=== PATIENT | female | born 1990 | race Caucasian/White ===

== ENCOUNTER 2020-02-20 16:03 | Outpatient (CLI) | payer OTHER, MEDICAID, SELFPAY ==
[2020-02-20 17:12] LABS: Beta HCG Quantitative < 2.39 mIU/ML
== END 2020-02-20 16:04 | disposition home or self-care (01) ==
PROVIDERS: PCP Family Medicine; Visit Provider Student in an Organized Health Care Education/Training Program
DX: Z30.49 Encounter for surveillance of other contraceptives (principal)
CPT/HCPCS: 36415; 84702

== ENCOUNTER 2024-02-01 09:48 | Emergency (ER) | payer BC, SELFPAY ==
--- NOTE | ~2024-02-01 | CT_ITS ---
EXAMINATION: CT lumbar spine wo con DATE: 02/01/2024 10:36 INDICATION: Low back pain. Injury. TECHNIQUE: Computed tomography (CT) of the lumbar spine was performed without intravenous contrast. A utomated exposure control and iterative reconstruction technique were employed. The dose-length produ ct was 1207.26 mGy-cm. COMPARISON: None FINDINGS: There is 13 degrees levoscoliosis of lumbar spine. Vertebral body heights are normal. Inter vertebral disc heights are normal. The following disc levels are specifically discussed: L1-L2: The disc does not extend beyond the endplate margin. There is mild bilateral facet joint osteo arthritis. There is no neural foraminal stenosis. There is no central canal stenosis. L2-L3: The disc is bulging. There is mild bilateral facet joint osteoarthritis. There is mild bilater al neural foraminal stenosis. There is mild central canal stenosis. L3-L4: The disc is bulging. There is mild bilateral facet joint osteoarthritis. There is mild left ne ural foraminal stenosis. There is mild central canal stenosis. L4-L5: The disc is bulging. There is mild bilateral facet joint osteoarthritis. There is mild left ne ural foraminal stenosis. There is mild central canal stenosis. L5-S1: The disc is bulging. There is mild bilateral facet joint osteoarthritis. There is mild bilater al neural foraminal stenosis. There is mild central canal stenosis. IMPRESSION: 1. No fracture. 2. Mild lumbar spondylosis. 3. Lumbar levoscoliosis. Reviewed, dictated and finalized at location A.
--- NOTE | ~2024-02-01 | XR_ITS ---
EXAMINATION: XR hand RT min 3V DATE: 02/01/2024 10:52 INDICATION: Right hand injury and pain. TECHNIQUE: 3 views of right hand were obtained. COMPARISON: None. FINDINGS: Bone alignment is normal. There is a punctate calcification at radial side of base of third proximal phalanx. Joint spaces are normal. IMPRESSION: 1. Punctate calcification at the radial side of base of third proximal phalanx, which may be an acute avulsion fracture or a chronic finding. Correlate for focal tenderness. Reviewed, dictated and finalized at location A. IMPRESSION: 1. Punctate calcification at the radial side of base of third proximal phalanx, which may be an acute avulsion fracture or a chronic finding. Correlate for fo sabine tenderness.
--- NOTE | ~2024-02-01 | CT_ITS ---
EXAMINATION: CT cervical spine wo con DATE: 02/01/2024 10:36 INDICATION: Neck pain. Injury. TECHNIQUE: Computed tomography (CT) of the cervical spine was performed without intravenous contrast. Automated exposure control and iterative reconstruction technique were employed. The dose-length pro duct was 554.41 mGy-cm. COMPARISON: None FINDINGS: There is 13 degrees levoscoliosis of the cervicothoracic spine. There is kyphosis of cervic al spine. Vertebral body heights are normal. Intervertebral disc heights are normal. At C7-T1, there is mild bilateral facet joint osteoarthritis. No neural foraminal stenosis or central canal stenosis. IMPRESSION: 1. No fracture. 2. Cervicothoracic levoscoliosis. Cervical kyphosis. Reviewed, dictated and finalized at location A.
--- NOTE | ~2024-02-01 | XR_ITS ---
EXAMINATION: XR chest 2V DATE: 02/01/2024 10:52 INDICATION: Chest pain. Injury. TECHNIQUE: Frontal and lateral views of the chest were obtained. COMPARISON: Chest 2 views 12/02/2017 FINDINGS: There is no pneumonia, pleural effusion, or pneumothorax. The heart size is normal. There i s an old healed fracture of left ninth rib. IMPRESSION: 1. No acute cardiopulmonary disease. Reviewed, dictated and finalized at location A.
--- NOTE | ~2024-02-01 | XR_ITS ---
EXAMINATION: XR knee LT min 4V DATE: 02/01/2024 10:52 INDICATION: Left knee injury and pain. TECHNIQUE: 4 views of left knee were obtained. COMPARISON: None. FINDINGS: Bone alignment is normal. No fracture. Joint spaces are normal. No knee joint effusion. IMPRESSION: 1. Normal left knee. Reviewed, dictated and finalized at location A. IMPRESSION: 1. Normal left knee.
--- NOTE | ~2024-02-01 | CT_ITS ---
EXAMINATION: CT brain wo con DATE: 02/01/2024 10:36 INDICATION: Head injury. TECHNIQUE: Computed tomography (CT) of the head was performed without intravenous contrast. The mA wa s adjusted according to patient size. Iterative reconstruction technique was employed. The dose-lengt h product was 681.00 mGy-cm. COMPARISON: Head CT 02/28/2017 FINDINGS: There is no intracranial hemorrhage, acute infarction, or abnormal intracranial mass lesion . The ventricles are normal in size. There is mucosal thickening in the paranasal sinuses. The orbits are normal. The mastoid air cells are normal. IMPRESSION: 1. Normal brain. Reviewed, dictated and finalized at location A. IMPRESSION: 1. Normal brain.
--- NOTE | ~2024-02-01 | XR_ITS ---
EXAMINATION: XR shoulder RT min 2V DATE: 02/01/2024 10:52 INDICATION: Right shoulder injury and pain. TECHNIQUE: 4 views of right shoulder were obtained. COMPARISON: None. FINDINGS: Bone alignment is normal. No fracture. Joint spaces are normal. IMPRESSION: 1. Normal right shoulder. Reviewed, dictated and finalized at location A. IMPRESSION: 1. Normal right shoulder.
--- NOTE | ~2024-02-01 | XR_ITS ---
EXAMINATION: XR knee RT min 4V DATE: 02/01/2024 10:52 INDICATION: Right knee injury and pain. TECHNIQUE: 4 views of right knee were obtained. COMPARISON: None. FINDINGS: Bone alignment is normal. No fracture. Joint spaces are normal. No knee joint effusion. IMPRESSION: 1. Normal right knee. Reviewed, dictated and finalized at location A. IMPRESSION: 1. Normal right knee.
[2024-02-01 09:51] VITALS: BP 150/85; PULSE 80; RESP 18; TEMP 37; O2SAT 100
--- NOTE | 2024-02-01 09:55 | ECG_ITS ---
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 Measurements Intervals [place] Rate: 73 P: 59 NC: 184 QRS: 63 QRSD: 97 T: 35 QT: 387 QTc: 429 Interpretive Statements SINUS RHYTHM POSSIBLE LEFT ATRIAL ENLARGEMENT INCOMPLETE RIGHT BUNDLE BRANCH BLOCK BORDERLINE ECG No previous ECG available for comparison Electronically Signed On 02-02-2024 08:49:25 CDT by Epi Ware D.O.
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
[2024-02-01 10:25] VITALS: BP 136/80; PULSE 69; RESP 15; O2SAT 99
--- NOTE | 2024-02-01 10:27 | PC.NURSE ---
pt to CT and XRAY at this time
[2024-02-01 10:31] LABS: Basophils Absolute Auto 0.1 K/mm3 (0.0-0.1); Basophils Percent Auto 0.5 % (0.2-1.2); Eosinophils Absolute Auto 0.2 K/mm3 (0-0.3); Eosinophils Percent Auto 1.8 % (0-4.4); Hematocrit 41.6 % (37.0-47.0); Hemoglobin 13.4 g/dL (12.0-15.0); Immature Granulocyte Absolute 0.04 K/mm3 (0.00-0.031); Immature Granulocyte Percent A 0.3 % (0-0.5); Lymphocytes Absolute Auto 1.68 K/mm3 (0.9-3.2); Lymphocytes Percent Auto 13.5 % (18.3-44.2); Mean Corpuscular HGB Conc 32.2 g/dl (32-36); Mean Corpuscular Hemoglobin 30.1 pg (26-34); Mean Corpuscular Volume 93.5 fl (80-100); Monocytes Absolute Auto 0.8 K/mm3 (0.1-0.6); Monocytes Percent Auto 6.3 % (2.6-8.5); Neutrophils Absolute Auto 9.7 K/mm3 (1.3-6.7); Neutrophils Percent Auto 77.6 % (45.5-73.1); Platelet Count Result 286 k/mm3 (150-375); Red Blood Count 4.45 M/mm3 (4.2-5.4); Red Cell Distribution Width 12.5 % (11.5-14.5); White Blood Count 12.5 K/mm3 (4.5-10.0)
[2024-02-01 10:42] LABS: Alanine Aminotransferase 21 U/L (6-35); Albumin Level 4.7 g/dL (3.5-5.1); Alkaline Phosphatase 66 U/L (38-126); Anion Gap 10 mmol/L (4-12); Aspartate Amino Transferase 21 U/L (14-36); Bilirubin,Total 0.5 mg/dL (0.2-1.3); Blood Urea Nitrogen 8 mg/dL (7-17); Calcium 9.2 mg/dL (8.4-10.2); Carbon Dioxide 24 mmol/L (22-30); Chloride 103 mmol/L (98-107); Estimated CRCL calculation 111 ml/min; Estimated Glomerular Filt Rate > 60; Glucose 98 mg/dL (65-110); Sodium 137 mmol/L (137-145)
[2024-02-01 10:54] LABS: Troponin I < 0.012 ng/mL (0.000-0.034)
== END 2024-02-01 11:19 | disposition home or self-care (01) ==
PROVIDERS: Emergency Provider Physician Assistant; PCP Family Medicine
DX: S40.011A Contusion of right shoulder, initial encounter (principal); S06.0X0A Concussion without loss of consciousness, initial encounter; S16.1XXA Strain of muscle, fascia and tendon at neck level, initial encounter; J45.909 Unspecified asthma, uncomplicated; Z87.891 Personal history of nicotine dependence; Z79.899 Other long term (current) drug therapy; M47.816 Spondylosis without myelopathy or radiculopathy, lumbar region; R94.31 Abnormal electrocardiogram [ECG] [EKG]; R93.6 Abnormal findings on diagnostic imaging of limbs; W20.8XXA Other cause of strike by thrown, projected or falling object, initial encounter; X37.1XXA Tornado, initial encounter
CPT/HCPCS: 36415; 70450; 71046; 72125; 72131; 73030; 73130; 73564; 80053; 81025; 84484; 85025; 93005; 99284